=== PATIENT | male | born 1970 | race American Indian/Alaskan Native ===

== ENCOUNTER 2016-10-20 12:38 | Outpatient (CLI) | payer BC ==
[2016-10-20] MEDS ORDERED: NACL ONE (13:38)
[2016-10-20 13:40] LABS: Blood Urea Nitrogen 9 mg/dL (9-20)
== END 2016-10-20 12:39 | disposition home or self-care (01) ==
LOC: CT 12:38
PROVIDERS: ATTEND Radiology Vascular & Interventional Radiology
DX: I70.219 Atherosclerosis of native arteries of extremities with intermittent claudication, unspecified extremity (principal)
CPT/HCPCS: 36415; 75635; 82565; 84520; Q9967